=== PATIENT | female | born 1985 | race Caucasian/White ===

== ENCOUNTER 2016-04-25 | Inpatient (IN) | payer BC ==
[~2016-04-25] VITALS: Ht 160 cm; Wt 77.1 kg
[2016-04-25] MEDS ORDERED: PRENATAL PLUS I1 TAB PO (22:08)
[2016-04-27] MEDS ORDERED: MOTRIN800 MG PO (09:03)
[2016-04-27] MEDS ORDERED: NORCO 325-5 MG1 TAB PO (09:03)
[2016-04-27] MEDS ORDERED: COLACE100 MG PO (09:04)
== END 2016-04-27 09:48 | disposition short-term general hospital (02) | DRG 766 ==
PROVIDERS: ADMIT Family Medicine
PROC: 10907ZC Drainage of Amniotic Fluid, Therapeutic from Products of Conception, Via Natural or Artificial Opening (ICD-10-PCS; principal; 2016-04-25)
PROC: 10D00Z1 Extraction of Products of Conception, Low, Open Approach (ICD-10-PCS; principal; 2016-04-25)
DX: O34.219 Maternal care for unspecified type scar from previous cesarean delivery (principal); Z3A.39 39 weeks gestation of pregnancy; Z37.0 Single live birth; O32.1XX0 Maternal care for breech presentation, not applicable or unspecified
CPT/HCPCS: A9150; J0690; J1200; J1885; J2270; J2300; J2405; J2590; J2765; J3010